=== PATIENT | male | born 2000 | race Hispanic/Latino ===

== ENCOUNTER 2022-06-25 08:38 | Emergency (ER) | payer SELFPAY ==
[~2022-06-25] VITALS: Ht 175.3 cm; Wt 77.1 kg
[2022-06-25 09:13] VITALS: BP 110/56
[2022-06-25] MEDS ORDERED: AMOX-427 PO (10:52)
== END 2022-06-25 10:50 | disposition home or self-care (01) ==
LOC: EDH 08:38
DX: S91.331A Puncture wound without foreign body, right foot, initial encounter (principal); W45.0XXA Nail entering through skin, initial encounter; X58.XXXA Exposure to other specified factors, initial encounter; Y93.89 Activity, other specified; Y92.89 Other specified places as the place of occurrence of the external cause; Y99.8 Other external cause status
CPT/HCPCS: 73630